=== PATIENT | male | born 2005 | race African-American/Black ===

== ENCOUNTER 2023-07-20 22:47 | Emergency (ER) | payer MEDICAID ==
[~2023-07-20] VITALS: Ht 177.8 cm; Wt 72.7 kg
[2023-07-20 22:49] VITALS: TEMP 98.3
[2023-07-20 23:09] LABS: BASOPHILS % (AUTO) 0.3 % (0.0-2.0); EOSINOPHILS % (AUTO) 0.3 % (1.0-6.0); HEMATOCRIT 48.8 % (41-53); HEMOGLOBIN 16.1 g/dL (13.5-17.5); LYMPHOCYTES # (AUTO) 2.1 K/uL (1.0-4.8); LYMPHOCYTES % (AUTO) 18.7 % (22.0-44.0); MEAN CORPUSCULAR HEMOGLOBIN 29.5 pg (26.0-34.0); MEAN CORPUSCULAR VOLUME 90 fL (80-100); MONOCYTES % (AUTO) 8.5 % (2.0-9.0); NEUTROPHILS # (AUTO) 8.3 K/uL (1.8-7.7); NEUTROPHILS % (AUTO) 72.2 % (40.0-70.0); PLATELET COUNT (AUTO) 315 K/uL (150-450); RED BLOOD CELL COUNT(AUTO) 5.45 MIL/uL (4.50-5.90); RED CELL DISTRIBUTION WIDTH 14.2 % (11.5-14.5); WHITE BLOOD COUNT (AUTO) 11.5 K/uL (4.5-11.0)
[2023-07-20 23:19] LABS: ANION GAP 16 mmol/L (8-16); CALCIUM, TOTAL 10.2 mg/dL (8.8-10.5); CARBON DIOXIDE 26 mmol/L (22-29); CHLORIDE 94 mmol/L (98-107); CREATININE 1.36 mg/dL (0.60-1.30); GLOMERULAR FILTR. RATE CALC > 60 mL/min (>60); GLUCOSE,RANDOM 113 mg/dL (70-110); POTASSIUM 3.2 mmol/L (3.5-5.1); SODIUM SERUM 136 mmol/L (136-145); UREA NITROGEN, BLOOD 18 mg/dL (7-18)
[2023-07-20 23:24] LABS: ALANINE AMINOTRANSFERASE 64 U/L (12-78); ALBUMIN 5.3 g/dL (3.4-5.0); ALKALINE PHOSPHATASE 111 U/L (46-116); ASPARTATE AMINOTRANSFERASE 72 U/L (15-37); BILIRUBIN,TOTAL 2.4 mg/dL (0.1-1.0); LIPASE 39 U/L (16-77)
[2023-07-20 23:41] LABS: INFLUENZA A-RTPCR,COMBO NEGATIVE (NEGATIVE); INFLUENZA B-RTPCR,COMBO NEGATIVE (NEGATIVE); RESPIRATORY SYNCYTIAL VRS-PCR NEGATIVE (NEGATIVE); SARS COVID19 RTPCR, COMBO NEGATIVE (NEGATIVE)
[2023-07-21] MEDS: ONDANSETRON HCL 4 MG/2 ML VIAL IVP ONE (00:30)
[2023-07-21] MEDS: MAG HYDROX/ALUMINUM HYD/SIMETH 30 ML SUSPENSION UDCUP PO ONE (00:30)
[2023-07-21] MEDS: FAMOTIDINE 20 MG/2 ML VIAL IVP ONE (00:30)
[2023-07-21] MEDS: POTASSIUM CHLORIDE 20 MEQ ER TABLET PO ONE (00:30)
[2023-07-21] MEDS: KETOROLAC TROMETHAMINE 30 MG/ML VIAL IVP ONE (00:30)
[2023-07-21] MEDS: SODIUM CHLORIDE 0.9% 1,000 ML IV ONE (00:31)
[2023-07-21 01:35] LABS: INR 1.1 (0.9-1.1); PROTHROMBIN TIME 11.8 SEC (9.4-11.6)
[2023-07-21] MEDS: DiphenhydrAMINE HCL 50 MG/ML VIAL IVP ONE (01:52)
[2023-07-21] MEDS: METOCLOPRAMIDE HCL 5 MG/ML 2 ML VIAL IVP ONE (01:52)
[2023-07-21] MEDS ORDERED: ONDA-104 PO (03:47)
[2023-07-21 03:55] VITALS: BP 124/55; PULSE 62; RESP 17
== END 2023-07-21 04:00 | disposition home or self-care (01) ==
LOC: EMS 22:49
DX: R11.2 Nausea with vomiting, unspecified (principal); Z20.822 Contact with and (suspected) exposure to COVID-19
CPT/HCPCS: 99285; 0241U; 76700; 80053; 83690; 85025; 85610; 36415; 96374; 96375; 96361; J3490; J1885; J2405; J7030; J1200; J2765